=== PATIENT | female | born 1930 | race Caucasian/White ===

== ENCOUNTER → 2017-01-20 | Outpatient (CLI) | payer MEDICARE, BC ==
[~2017-01-20] MED LIST: COZAAR100 MG PO; DETROL LA4 PO; HCTZ12.5TAB PO; LOPRESSOR 550 MG/TAB PO; MULTIPLE VITAMI1 CAP PO; PRAVACHOL 40MG40 MG PO; TYLENOL PM EXTR1 TA1 PO; ULTRAM 50MG TAB50 MG PO
== END ==
LOC: MC.RAD 09:56
DX: Z12.31 Encounter for screening mammogram for malignant neoplasm of breast (principal)

== ENCOUNTER 2017-07-12 10:59 | Inpatient (IN) | payer MEDICARE, BC ==
[~2017-07-12] VITALS: Ht 167.6 cm; Wt 56.2 kg
[2017-07-12] VITALS (8 sets, daily range): BP systolic 100–135; BP diastolic 42–90; PULSE 73–81; TEMP 97.7–98.2
[2017-07-12 11:57] LABS: HEMOGLOBIN 12.3 g/dl (12.5-16.0); MEAN CELL VOLUME 91 fl (80.0-100.0); MEAN CORPUSCULAR HEMOGLOBIN 31 pg (27.0-31.0); MEAN CORPUSCULAR HGB CONC 34 g/dl (33.0-37.0); MEAN PLATELET VOLUME 9.4 fl (7.4-10.4); PLATELET COUNT 235 K/mm3 (130-400); RED BLOOD COUNT 4.02 M/mm3 (4.10-5.30)
[2017-07-12 12:00] LABS: INR 1.1 (0.8-3.0); PROTHROMBIN TIME 11.9 SECONDS (9.7-12.8)
[2017-07-12 12:02] LABS: ADD PATHOLOGY DIFF REVIEW NO; HEMATOCRIT 36.4 % (37.0-47.0); WHITE BLOOD COUNT 22.4 K/mm3 (4.8-10.8)
[2017-07-12 12:06] LABS: ADJUSTED CALCIUM 9.2 mg/dL (8.4-10.2); ALBUMIN 3.8 gm/dL (3.5-5.0); BILIRUBIN,TOTAL 0.8 mg/dL (0.0-1.0); CREATININE, serum 0.98 mg/dL (0.52-1.25); POTASSIUM 3.9 mmol/L (3.4-5.0); TOTAL PROTEIN 6.7 gm/dL (6.4-8.2)
[2017-07-12 15:32] LABS: BAND 25 % (0-10); EOSINOPHIL 1 % (0-4); METAMYELOCYTE 2 % (0-0); NEUTROPHILS 63 % (42.0-75.2); PLATELET ESTIMATE NORMAL (NORMAL); TOTAL CELLS COUNTED 100
[2017-07-12 18:23] LABS: PH 6 (5-8); SQUAMOUS EPITHELIAL 0-2 /hpf; URINE APPEARANCE Hazy; URINE BACTERIA None Seen /hpf; URINE BILIRUBIN Negative (NEGATIVE); URINE BLOOD 1+ (NEGATIVE); URINE COLOR Yellow; URINE GLUCOSE Negative (NEGATIVE); URINE KETONE Negative (NEGATIVE); URINE UROBILINOGEN Negative (NEGATIVE); URINE WBC 0-2 /hpf
[2017-07-13] VITALS (12 sets, daily range): BP systolic 102–151; BP diastolic 43–73; PULSE 74–116; TEMP 97.8–99.1
[2017-07-13 08:30] LABS: MEAN CELL VOLUME 93 fl (80.0-100.0); MEAN CORPUSCULAR HGB CONC 33 g/dl (33.0-37.0); MEAN PLATELET VOLUME 9.9 fl (7.4-10.4); PLATELET COUNT 157 K/mm3 (130-400); RED BLOOD COUNT 1.97 M/mm3 (4.10-5.30); REDCELL DISTRIBUTION WIDTH-CV 13.5 % (11.5-14.5); WHITE BLOOD COUNT 12.8 K/mm3 (4.8-10.8)
[2017-07-13 08:36] LABS: HEMATOCRIT 18.4 % (37.0-47.0); HEMOGLOBIN 6.1 g/dl (12.5-16.0); MEAN CORPUSCULAR HEMOGLOBIN 31 pg (27.0-31.0)
[2017-07-13 08:42] LABS: ADJUSTED CALCIUM 9.2 mg/dL (8.4-10.2); ALBUMIN 2.3 gm/dL (3.5-5.0); BILIRUBIN,TOTAL 0.4 mg/dL (0.0-1.0); CALCIUM 7.8 mg/dL (8.4-10.2); CREATININE, serum 1.4 mg/dL (0.52-1.25); POTASSIUM 3.9 mmol/L (3.4-5.0); TOTAL PROTEIN 4.5 gm/dL (6.4-8.2)
[2017-07-13 11:06] LABS: HEMOGLOBIN 6.1 g/dl (12.5-16.0)
[2017-07-13 11:07] LABS: HEMATOCRIT 17.6 % (37.0-47.0)
[2017-07-14 02:00] VITALS: BP 116/53; PULSE 89; TEMP 98.9
[2017-07-14 05:00] VITALS: BP 116/50; PULSE 90; TEMP 98.3
[2017-07-14 07:44] LABS: ADD PATHOLOGY DIFF REVIEW NO; HEMATOCRIT 23.4 % (37.0-47.0); HEMOGLOBIN 8.4 g/dl (12.5-16.0); MEAN CELL VOLUME 87 fl (80.0-100.0); MEAN CORPUSCULAR HEMOGLOBIN 31 pg (27.0-31.0); MEAN CORPUSCULAR HGB CONC 36 g/dl (33.0-37.0); MEAN PLATELET VOLUME 9.5 fl (7.4-10.4); PLATELET COUNT 125 K/mm3 (130-400); RED BLOOD COUNT 2.68 M/mm3 (4.10-5.30); REDCELL DISTRIBUTION WIDTH-CV 13.9 % (11.5-14.5); WHITE BLOOD COUNT 14.2 K/mm3 (4.8-10.8)
[2017-07-14 07:53] LABS: CALCIUM 7.6 mg/dL (8.4-10.2); CREATININE, serum 1.39 mg/dL (0.52-1.25); POTASSIUM 3.3 mmol/L (3.4-5.0)
[2017-07-14 09:30] VITALS: BP 114/51; PULSE 90; TEMP 99.1
[2017-07-14 09:35] LABS: BAND 46 % (0-10); METAMYELOCYTE 1 % (0-0); NEUTROPHILS 45 % (42.0-75.2); PLATELET ESTIMATE DECREASED (NORMAL); TOTAL CELLS COUNTED 100
[2017-07-14 14:52] VITALS: BP 90/56; PULSE 86; TEMP 98.1
[2017-07-14 17:59] VITALS: BP 130/55; PULSE 102; TEMP 99.1
[2017-07-14 21:55] VITALS: BP 115/50; PULSE 94; TEMP 98.1
[2017-07-15 02:03] VITALS: BP 98/51; PULSE 67; TEMP 98.2
[2017-07-15 04:50] VITALS: BP 98/45; PULSE 71; TEMP 98.1
[2017-07-15 08:28] LABS: HEMOGLOBIN 9.4 g/dl (12.5-16.0)
[2017-07-15 10:39] VITALS: BP 95/65; PULSE 113; TEMP 97.7
[2017-07-15 12:48] LABS: CREATININE, serum 1.26 mg/dL (0.52-1.25); POTASSIUM 3.8 mmol/L (3.4-5.0)
[2017-07-15 14:12] VITALS: BP 108/55; PULSE 93; TEMP 98.4
[2017-07-15 17:36] VITALS: BP 122/48; PULSE 90; TEMP 98.1
[2017-07-15 22:43] VITALS: BP 94/52; PULSE 86; TEMP 97.9
[2017-07-16 04:53] VITALS: BP 93/46; PULSE 84; TEMP 97.6
[2017-07-16 08:15] LABS: HEMATOCRIT 24.6 % (37.0-47.0); HEMOGLOBIN 8.5 g/dl (12.5-16.0); MEAN CELL VOLUME 90 fl (80.0-100.0); MEAN CORPUSCULAR HEMOGLOBIN 31 pg (27.0-31.0); MEAN CORPUSCULAR HGB CONC 35 g/dl (33.0-37.0); MEAN PLATELET VOLUME 9.7 fl (7.4-10.4); PLATELET COUNT 195 K/mm3 (130-400); RED BLOOD COUNT 2.75 M/mm3 (4.10-5.30); REDCELL DISTRIBUTION WIDTH-CV 13.9 % (11.5-14.5); WHITE BLOOD COUNT 16.2 K/mm3 (4.8-10.8)
[2017-07-16 08:37] LABS: ALBUMIN 2.7 gm/dL (3.5-5.0); BILIRUBIN,TOTAL 1.1 mg/dL (0.0-1.0); CREATININE, serum 1.35 mg/dL (0.52-1.25); POTASSIUM 3.4 mmol/L (3.4-5.0); TOTAL PROTEIN 5.3 gm/dL (6.4-8.2)
[2017-07-16 09:35] VITALS: BP 132/50; PULSE 46; TEMP 97.7
[2017-07-16 11:12] VITALS: BP 132/50; PULSE 46; TEMP 97.7
== END 2017-07-16 15:00 | DRG 481 ==
LOC: COL.ER 10:59 → JCC 11:59 → SURG 11:59
PROVIDERS: Emergency Medicine; Internal Medicine Cardiovascular Disease; Nurse Practitioner Family; Orthopaedic Surgery
PROC: 0QS606Z Reposition Right Upper Femur with Intramedullary Internal Fixation Device, Open Approach (ICD-10-PCS; principal; 2017-07-12 15:00)
DX: S72.141A Displaced intertrochanteric fracture of right femur, initial encounter for closed fracture (principal); E87.1 Hypo-osmolality and hyponatremia; D62 Acute posthemorrhagic anemia; N17.9 Acute kidney failure, unspecified; E44.0 Moderate protein-calorie malnutrition; W18.30XA Fall on same level, unspecified, initial encounter; I10 Essential (primary) hypertension; Z85.828 Personal history of other malignant neoplasm of skin; Z87.891 Personal history of nicotine dependence
CPT/HCPCS: 99222-AI; 99232-AI; 99233-AI; A9284; C1713; J0690; J1100; J1940; J2250; J2270; J2370; J2405; J2704; J3010; J7030; P9016

== ENCOUNTER → 2017-08-19 | Outpatient (CLI) | payer MEDICARE, BC | LOC: COL.RAD 15:29 | DX: S30.1XXA Contusion of abdominal wall, initial encounter (principal); J90 Pleural effusion, not elsewhere classified ==

== ENCOUNTER → 2017-08-21 | Outpatient (CLI) | payer MEDICARE, BC ==
[~2017-08-21] MED LIST changes: +HCTZ 25MG TAB25 MG PO; +NORCO 325 MG-51 TAB PO; +TOPROL XL 25MG25 MG PO
== END ==
LOC: COL.RAD 08:33
DX: S22.41XA Multiple fractures of ribs, right side, initial encounter for closed fracture (principal); J90 Pleural effusion, not elsewhere classified

== ENCOUNTER → 2018-12-21 | Outpatient (CLI) | payer MEDICARE, BC | LOC: COL.RAD 09:17 | DX: K21.9 Gastro-esophageal reflux disease without esophagitis (principal) ==